=== PATIENT | female | born 1950 | race Caucasian/White ===

== ENCOUNTER 2016-11-17 06:48 | Day surgery (SDC) | payer MEDICARE, OTHER ==
[2016-11-17 07:13] VITALS: BMI 26.4
--- NOTE | 2016-11-17 08:07 | CP.SDSHP ---
Same Day Surgery H & P - History Proposed Procedure: EGD/COlon Pre-Op Diagnosis: Weight loss / CRC Screen - Allergies Allergies: Allergies No Known Allergies Allergy (Verified 03/16/13 09:30) - Physical Exam General Appearance: Nl Vital Signs: Vital Signs 11/17/16 11/17/16 07:12 07:56 Temperature 97.2 F L 97.2 F L Pulse Rate 58 L 58 L Respiratory 19 19 Rate Blood Pressure 137/69 137/69 O2 Sat by Pulse 98 98 Oximetry Mental Status: Alert & Oriented x3 Neuro: WNL Heart: WNL Lungs: WNL GI: WNL - {Optional Preform as Required} Abdomen: WNL - Impression Impression: Weight loss CRC Screen Pt. Evaluated Today:Candidate for Anesthesia & Procedure: Yes - Date & Time Date: 11/17/16 Time: 08:07 Short Stay Discharge - Short Stay Discharge Admitting Diagnosis/Reason for Visit: WEIGHT LOSS,COLON CA SCREENING Disposition: HOME/ ROUTINE
[2016-11-17] MEDS ORDERED: Propofol 10 mg/ml Inj (20 ML) ONE (08:08)
[2016-11-17 09:01] VITALS: TEMP 96.9
[2016-11-17 10:55] VITALS: BP 137/78; PULSE 60; RESP 15; O2SAT 97
== END 2016-11-17 10:40 | disposition home or self-care (01) ==
LOC: C.ENDO 06:48
PROVIDERS: ATTEND Internal Medicine
DX: D12.0 Benign neoplasm of cecum (principal); R63.4 Abnormal weight loss; D12.5 Benign neoplasm of sigmoid colon; K29.50 Unspecified chronic gastritis without bleeding; D12.4 Benign neoplasm of descending colon; K64.8 Other hemorrhoids
CPT/HCPCS: 43239; 45385; 88305; J2704